=== PATIENT | female | born 1995 | race African-American/Black ===

== ENCOUNTER 2019-05-17 16:48 | Emergency (ER) | payer SELFPAY ==
[2019-05-17] MEDS ORDERED: METOCLOPRAMIDE HCL 10 MG TABLET PO ONE (18:05)
--- NOTE | 2019-05-17 18:09 | ER Document Report ---
ED Medical Screen (RME) - General Chief Complaint: Nausea/Vomiting Stated Complaint: VOMITING Time Seen by Provider: 05/17/19 18:05 Mode of Arrival: Ambulatory Information source: Patient Notes: 23-year-old female presented to ED for complaint of nausea and vomiting for the last 3 days. She states she cannot even keep water down. She states she has had no fevers or chills. She has had lower abdominal cramping. Last menstrual period was in late March and she states she has had positive home pregnancies. States she has not had any vaginal bleeding. She states that sometimes when she forcefully vomits he has some blood streaks in her emesis. She is alert oriented respirations regular nonlabored speaking in full sentences. She will be treated with Reglan in the triage area and blood and urine will be obtained. She is 2 para 1 if this is a . I have greeted and performed a rapid initial assessment of this patient. A comprehensive ED assessment and evaluation of the patient, analysis of test results and completion of medical decision making process will be conducted by an additional ED providers. - Related Data Allergies/Adverse Reactions: No Known Allergies Allergy (Unverified 05/17/19 17:54) Home Medications: denies Past Medical History - Social History Chew tobacco use (# tins/day): No Frequency of alcohol use: None Drug Abuse: None Physical Exam - Vital signs Vitals: Temp Pulse Resp BP Pulse Ox 98.2 F 75 18 130/71 H 100 05/17/19 16:48 05/17/19 16:48 05/17/19 16:48 05/17/19 16:48 05/17/19 16:48 Course - Vital Signs Vital signs: Temp Pulse Resp BP Pulse Ox 98.2 F 75 18 130/71 H 100 05/17/19 16:48 05/17/19 16:48 05/17/19 16:48 05/17/19 16:48 05/17/19 16:48
[2019-05-17 18:57] LABS: APPEARANCE,URINE SLIGHTLY-CLOUDY; BILIRUBIN,URINE NEGATIVE (NEGATIVE); COLOR,URINE YELLOW; GLUCOSE, URINE 50 mg/dL (NEGATIVE); KETONES,URINE 80 mg/dL (NEGATIVE); PROTEIN,URINE 100 mg/dL (NEGATIVE); URINE SPECIFIC GRAVITY 1.031; UROBILINOGEN,URINE NEGATIVE mg/dL (<2.0)
[2019-05-17 18:58] LABS: ABSOLUTE BASOPHILS # (AUTO) 0.1 10^3/uL (0.0-0.2); ABSOLUTE LYMPHOCYTES (AUTO) 1.6 10^3/uL (0.5-4.7); ABSOLUTE MONOCYTES (AUTO) 0.6 10^3/uL (0.1-1.4); ABSOLUTE NEUT (AUTO) 6.8 10^3/uL (1.7-8.2); BASOPHILS % (AUTO) 0.6 % (0-2); EOSINOPHILS % (AUTO) 0.2 % (0-6); HEMATOCRIT 43.8 % (36.0-47.0); HEMOGLOBIN 14.7 g/dL (12.0-15.5); LYMPHOCYTES % (AUTO) 17.5 % (13-45); MEAN CORPUSCULAR HEMOGLOBIN 28.7 pg (27.0-33.4); MEAN CORPUSCULAR HGB CONC 33.7 g/dL (32.0-36.0); MEAN CORPUSCULAR VOLUME 85 fl (80-97); MONOCYTES % (AUTO) 6.7 % (3-13); PLATELET COUNT 217 10^3/uL (150-450); RED BLOOD COUNT 5.15 10^6/uL (3.72-5.28); RED CELL DISTRIBUTION WIDTH 15.6 % (11.5-14.0); TOTAL CELLS COUNTED % (AUTO) 100 %; WHITE BLOOD COUNT 9.1 10^3/uL (4.0-10.5)
[2019-05-17] MEDS ORDERED: NORMAL SALINE 1000 ML 1,000 ML IV ONE (19:14)
[2019-05-17 19:15] LABS: ALBUMIN 4.9 g/dL (3.5-5.0); ALKALINE PHOSPHATASE 64 U/L (38-126); ANION GAP 10 (5-19); ASPARTATE AMINO TRANSFERASE 27 U/L (14-36); BILIRUBIN,TOTAL 0.8 mg/dL (0.2-1.3); BLOOD UREA NITROGEN 12 mg/dL (7-20); CALCIUM 9.7 mg/dL (8.4-10.2); CARBON DIOXIDE 25 mmol/L (22-30); CHLORIDE 101 mmol/L (98-107); GLUCOSE 79 mg/dL (75-110); POTASSIUM 3.8 mmol/L (3.6-5.0); TOTAL PROTEIN 8.5 g/dL (6.3-8.2)
--- NOTE | 2019-05-17 20:24 | ER Document Report ---
ED GI/ - General Chief Complaint: Nausea/Vomiting Stated Complaint: VOMITING Time Seen by Provider: 05/17/19 18:05 Primary Care Provider: [facility] [Provider Group] - Follow up as needed Mode of Arrival: Ambulatory Information source: Patient Notes: 23-year-old female presented to ED for complaint of nausea and vomiting for the last 3 days. She states she cannot even keep water down. She states she has not had any fever or chills but she has had lower abdominal cramping. S menstrual period was in late March and she is not having any vaginal bleeding or discomfort. She is not have any vaginal discharge. She states sometimes she forcefully vomits and has a little bit of blood streaks in her emesis. She is alert oriented respirations regular nonlabored speaking in full sentences. She was treated with Reglan earlier when I saw her. She states the nausea and vomiting is much better she is not having any pain. She would like a presc ription for the Reglan. I have discussed her labs with her. She is mildly dehydrated we will treat her with IV fluids and then discharge her home with a prescription for Reglan. - HPI Patient complains to provider of: , Vomiting Onset: Other - 3 days Severity at maximum: Mild Severity in ED: None Pain Level: Denies Location: Other - Lower abdominal cramping earlier no pain now Vaginal bleeding (Compared to normal period): None Menstrual period history: LMP: Late March : 2 Para: 1 OB ultrasound done: No vitamins taken: Yes Associated symptoms: Nausea, Vomiting Exacerbated by: Food Relieved by: Denies Similar symptoms previously: Yes Recently seen / treated by doctor: No - Related Data Allergies/Adverse Reactions: No Known Allergies Allergy (Unverified 05/17/19 17:54) Home Medications: denies Past Medical History - General Information source: Patient - Social History Smoking Status: Former Smoker Cigarette use (# per day): No Chew tobacco use (# tins/day): No Smoking Education Provided: No Frequency of alcohol use: None Drug Abuse: None Lives with: Family Family History: Reviewed & Not Pertinent Patient has suicidal ideation: No Patient has homicidal ideation: No - Past Medical History Cardiac Medical History: Reports: None Pulmonary Medical History: Reports: None EENT Medical History: Reports: None Neurological Medical History: Reports: None Endocrine Medical History: Reports: None Renal/ Medical History: Reports: None Malignancy Medical History: Reports: None GI Medical History: Reports: None Musculoskeletal Medical History: Reports None Skin Medical History: Reports None Psychiatric Medical History: Reports: None Traumatic Medical History: Reports: None Infectious Medical History: Reports: None Surgical Hx: Negative Past Surgical History: Reports: None - Immunizations Immunizations up to date: Yes Hx Diphtheria, Pertussis, Tetanus Vaccination: Yes Review of Systems - Review of Systems Constitutional: No symptoms reported EENT: No symptoms reported Cardiovascular: No symptoms reported Respiratory: No symptoms reported Gastrointestinal: Abdominal pain, Nausea, Vomiting Genitourinary: No symptoms reported Female Genitourinary: Musculoskeletal: No symptoms reported Skin: No symptoms reported Hematologic/Lymphatic: No symptoms reported Neurological/Psychological: No symptoms reported -: Yes All other systems reviewed and negative Physical Exam - Vital signs Vitals: Temp Pulse Resp BP Pulse Ox 98.2 F 75 18 130/71 H 100 05/17/19 16:48 05/17/19 16:48 05/17/19 16:48 05/17/19 16:48 05/17/19 16:48 Interpretation: Normal - General General appearance: Appears well, Alert - HEENT Head: Normocephalic, Atraumatic Eyes: Normal Pupils: PERRL - Respiratory Respiratory status: No respiratory distress Chest status: Nontender Breath sounds: Normal Chest palpation: Normal - Cardiovascular Rhythm: Regular Heart sounds: Normal auscultation Murmur: No - Abdominal Inspection: Normal Distension: No distension Bowel sounds: Normal Tenderness: Nontender. No: Tender Organomegaly: No organomegaly - Back Back: Normal, Nontender - Extremities General upper extremity: Normal inspection, Nontender, Normal color, Normal ROM, Normal temperature General lower extremity: Normal inspection, Nontender, Normal color, Normal ROM, Normal temperature, Normal weight bearing. No: Theron's sign - Neurological Neuro grossly intact: Yes Cognition: Normal Orientation: AAOx4 [place] Coma Scale Eye Opening: Spontaneous Franklin Coma Scale Verbal: Oriented [place] Coma Scale Motor: Obeys Commands [place] Coma Scale Total: 15 Speech: Normal Motor strength normal: LUE, RUE, LLE, RLE Sensory: Normal - Psychological Associated symptoms: Normal affect, Normal mood - Skin Skin Temperature: Warm Skin Moisture: Dry Skin Color: Normal Course - Re-evaluation Re-evalutation: 04/01/20 21:10 Labs were negative I discussed the lab results with the patient and gave her a copy of the results. She states she is feeling much better after her Reglan and would like to go home with a prescription of the Reglan. Patient has been treated with a liter of fluid. She states she has so much more energy now. She states she is ready to go home. Patient was discharged home with a prescription for the Reglan. - Vital Signs Vital signs: Temp Pulse Resp BP Pulse Ox 98.2 F 75 16 123/62 100 05/17/19 20:54 05/17/19 20:54 05/17/19 20:54 05/17/19 20:54 05/17/19 20:54 - Laboratory Result Diagrams: 05/17/19 18:21 05/17/19 18:21 Laboratory results interpreted by me: 05/17/19 05/17/19 05/17/19 18:21 18:21 18:21 RDW 15.6 H Sodium 135.7 L Creatinine 0.46 L Total Protein 8.5 H Beta HCG, Quant 02466.00 H Urine Protein 100 H Urine Glucose (UA) 50 H Urine Ketones 80 H Discharge - Discharge Clinical Impression: Nausea/vomiting in Condition: Stable Disposition: HOME, SELF-CARE Instructions: [facility] [place] Additional Instructions: VOMITING: Vomiting (or nausea without vomiting) can be caused by many other different problems. It can mean that something's wrong with the stomach, such as ulcers or inflammation or the intestinal tract, such as appendicitis. But it can also be a symptom of a problem that has nothing to do with the stomach or intestines. Vomiting is common with severe headaches, earaches, tonsillitis, and kidney infections, etc. We see it with pneumonia or heart attacks. Drugs can cause nausea and vomiting. Many abdominal problems cause vomiting; for example, gallstones, kidney stones, pancreatitis, and intestinal obstruction (blocked bowels). In most cases, curing the vomiting depends on fixing the problem that caused it. For temporary relief, we may use an anti-nausea medicine. For home use, we can prescribe suppositories, chewable pills, pills that dissolve in the mouth, or liquid anti-nausea drugs. If the vomiting seems to be caused by a problem in the stomach, acid-suppressing drugs may be prescribed as well. It's important to avoid dehydration. Sip small amounts of clear liquids (soft drinks, tea, broth, etc) . Try to take fluids frequently even if you are vomiting to prevent dehydration. Take increasing amounts of fluid and when liquids are being consumed successfully, advance to small amounts of bland food (toast, soups, mashed potatoes, etc.) until you are able to resume a regular diet. Avoid aspirin, tobacco, and alcohol. If the vomiting worsens, if the problem that's making you vomit worsens, or if there's evidence of bleeding in the stomach (such as black, tarry stool, or bloody or black vomit), you should return immediately. Also, return if abdominal pain worsens or becomes localized to one area or you develop high fever. Call your doctor if you aren't improved in 24 hours. INTRAVENOUS (I V) FLUIDS: As part of your care today, you received intravenous (IV) fluids. IV f luids are administered to patients who are dehydrated or to those who have certain chemical (electrolyte) abnormalities that need correcting. REGLAN (METOCLOPRAMIDE): Reglan has been prescribed. This medicine affects the stomach and intestines. It can be used to treat nausea and vomiting, to prevent reflux of stomach acid up into the esophagus, or to increase the contractions of the stoma ch and intestines. It is often prescribed for esophagitis, and for paralysis of the stomach in diabetics. Reglan can cause either mild restlessness or drowsiness. You should contact the doctor at once if you become extremely restless, anxious, or cannot sleep, or if you develop uncontrollable motions of the lips, tongue, or jaw. Do not take alcohol with this medicine. Do not drive or operate machinery until you have been taking this medicine long enough to know how it affects you. Call the doctor if you develop abdominal pains, lightheadedness, black stool, or blood in the stool or vomitus. FOLLOW-UP CARE: If you have been referred to a physician for follow-up care, call the physicians office for an appointment as you were instructed or within the next two days. If you experience worsening or a significant change in your symptoms, notify the physician immediately or return to the Emergency Department at any time for re-evaluation. Prescriptions: Metoclopramide HCl [Reglan 10 mg Tablet] 10 mg PO Q6HP PRN #20 tablet PRN Reason: Forms: Elevated Blood Pressure, Return to Work Referrals: [facility] [Provider Group] - Follow up as needed
[2019-05-17 20:55] VITALS: BP 123/62
== END 2019-05-17 21:13 | disposition home or self-care (01) ==
LOC: ER 16:48
DX: O99.611 Diseases of the digestive system complicating pregnancy, first trimester (principal); K92.0 Hematemesis; O26.891 Other specified pregnancy related conditions, first trimester; R10.30 Lower abdominal pain, unspecified; O99.281 Endocrine, nutritional and metabolic diseases complicating pregnancy, first trimester; E86.0 Dehydration; Z3A.01 Less than 8 weeks gestation of pregnancy; Z87.891 Personal history of nicotine dependence
CPT/HCPCS: 99284; 96360; 36415; 84702; 83690; 85025; 80053; 81001; J7030